=== PATIENT | male | born 1970 | race Caucasian/White ===

== ENCOUNTER 2024-12-31 00:07 | Emergency (ER) | payer OTHER, SELFPAY ==
[2024-12-31 00:14] VITALS: BP 168/100; PULSE 95; TEMP 36.7; O2SAT 96; BMI 39.6
--- NOTE | 2024-12-31 00:30 | ED_ITS ---
HPI - Skin/Abscess/Foreign Bdy General Chief complaint: Skin/Abscess/Foreign Body Stated complaint: PUNCTURE WOUND Time Seen by Provider: 12/31/24 00:29 Mode of arrival: walk-in History of Present Illness HPI narrative: lacerated proximal left FA at work tonight. lacerated by scrap metal. Denies other injury. No weakness or numbness of the left upper extremity Related Data Home Medications ?Medication ?Instructions ?Recorded ?Confirmed amlodipine 5 mg tablet (Norvasc) 5 mg PO DAILY 5 12/31/24 Allergies Allergy/AdvReac Type Severity Reaction Status Date / Time No Known Drug Allergies Allergy Verified 12/31/24 00:20 Review of Systems 2 ROS0 Status of ROS 10 or more systems reviewed and unremark able except as noted in history and below PFSH PFSH Social History Little interest or pleasure in doing things: not at all Feeling down, depressed, or hopeless: not at all Exam Constitutional Vital Signs, click to edit/add: Last Vital Signs Temp 98.1 F 12/31/24 00:14 Pulse 95 H 12/31/24 00:14 Resp 20 12/31/24 00:14 BP 150/89 H 12/31/24 01:35 Pulse Ox 96 12/31/24 00:14 O2 Del Method Room Air 12/31/24 00:14 Common normals: no apparent distress, average body habitus, oriented x3, no limitations, healthy appearing, alert and well nourished [facility] Common normals: normocephalic and head/scalp atraumatic Eye Common normals: EOMs intact bilaterally and conjunctivae normal Respiratory Common normals: normal respiratory effort, no retractions, no use of accessory muscles and clear to auscultation bilaterally Cardio Common normals: regular rate, regular rhythm, S1 normal heart sound and S2 normal heart sound Extremity Extremity image (back): 2 1. 4cm lac into SQs space Neuro Common normals: oriented x3, CN's II-XII intact bilaterally, moves all extremities and no focal motor deficits Psych Appearance: grossly normal Course Vital Signs Vital signs: Vital Signs Temperature 98.1 F 12/31/24 00:14 Pulse Rate 95 H 12/31/24 00:14 Respiratory Rate 20 12/31/24 00:14 Blood Pressure 168/100 H 12/31/24 00:14 Pulse Oximetry 96 12/31/24 00:14 Oxygen Delivery Method Room Air 12/31/24 00:14 Temperature 98.1 F 12/31/24 00:14 Pulse Rate 95 H 12/31/24 00:14 Respiratory Rate 20 12/31/24 00:14 Blood Pressure 150/89 H 12/31/24 01:35 Pulse Oximetry 96 12/31/24 00:14 Oxygen Delivery Method Room Air 12/31/24 00:14 MDM - Skin/Abscess/Foreign Bdy MDM Narrative Medical decision making narrative: lacerated left FA with scrap metal at work. lacerated thru SQ tissue and also superficial lac of underlying musculature. No FB. lac repaired as above. tolerated well. Discharged to follow up with [facility] Discharge Plan Discharge Chief Complaint: Skin/Abscess/Foreign Body Clinical Impression: Laceration of forearm, left Patient Disposition: Home, Self-Care Prescriptions / Home Meds: No Action amlodipine [Norvasc] 5 mg tablet 5 mg PO DAILY Print Language: [place]ian Instructions: Laceration (ED) Additional Instructions: have wound rechecked in 2-3 days and stitches removed in 10 days Discharge Date/Time: 12/31/24 01:35 Procedures ED Procedure Instructions Procedures Procedures: 5cm lac left forearm. 1% lido with epi as local. lac thru SQ tissue and superficial lac underlying muscle. vertical lac. No FB seen. Lac cleaned with betadine, rinsed with saline and closed with # 8 3.0 prolene sutures. Tolerated well
[2024-12-31] MEDS: LIDOCAINE HCL 1%-EPINEPHRINE 1:100,000 20 ML MDV 10 ML INJ (00:35)
[2024-12-31] MEDS: AMOXICILLIN/POT CLAV 875-125 MG TABLET 1 TAB PO (01:26)
[2024-12-31 01:35] VITALS: BP 150/89
== END 2024-12-31 01:35 | disposition home or self-care (01) ==
LOC: ER 01:59
PROVIDERS: Emergency Provider Internal Medicine
DX: S51.812A Laceration without foreign body of left forearm, initial encounter (principal); W26.8XXA Contact with other sharp object(s), not elsewhere classified, initial encounter
CPT/HCPCS: 12032; 73090; 99284